=== PATIENT | female | born 1960 | race Caucasian/White ===

== ENCOUNTER → 2017-10-15 | Outpatient (CLI) | payer BC ==
--- NOTE | 2017-10-15 18:09 | DIREP ---
PROCEDURE:XRAY SPINE LUMBAR MIN 4 VWS COMPARISON:None. INDICATIONS:LOW BACK PAIN M54.5 TECHNIQUE:AP, lateral, bilateral oblique, and coned down lateral views of the lumbar spine are provided. FINDINGS: ALIGNMENT:No scoliosis VERTEBRAE:No fracture. No lytic or blastic lesions of bone. Small area of bony degenerative sclerosis at the anterior portion of the upper L2 vertebral body endplate. DISK SPACES:Disc spaces are well maintained. SPONDYLOLISTHESIS:None. SACROILIAC JOINTS:Normal. OTHER:Normal. CONCLUSION:Minimal degenerative bony endplate change at the upper L2 level, not clinically significant. Otherwise unremarkable lumbar spine radiographs. Dictated by: Garrison Ng M.D. on 10/15/2017 at 06:05 PM
== END | disposition home or self-care (01) ==
LOC: RAD 11:55
PROVIDERS: ATTEND Internal Medicine
DX: M47.896 Other spondylosis, lumbar region (principal)
CPT/HCPCS: 72110